=== PATIENT | male | born 1955 | race African-American/Black ===

== ENCOUNTER 2017-08-02 09:15 | Emergency (ER) | payer MEDICARE, MEDICAID ==
--- NOTE | 2017-08-02 09:42 | ER Document Report ---
ED Medical Screen (RME) - General Chief Complaint: Dizziness Stated Complaint: DIZZINESS Time Seen by Provider: 08/02/17 09:36 Notes: 61-year-old male patient complains of onset of Saturday 3 days ago, of dizziness and dyspnea on exertion. Reports she was picking at things in her grandmother' s yard. He states now he cannot walk to the bathroom without having to sit down and rest due to shortness of breath. The dizziness is not provoked by head motion standing up or looking about quickly. He denies ever having this before, however he has been here with similar complaints twice in 1 week almost 3 years ago. I have greeted and performed a rapid initial assessment of this patient. A comprehensive ED assessment and evaluation of the patient, analysis of test results and completion of the medical decision making process will be conducted by additional ED providers. TRAVEL OUTSIDE OF THE [place] IN LAST 30 DAYS: No - Related Data Allergies/Adverse Reactions: No Known Allergies Allergy (Verified 08/02/17 09:18) Past Medical History - Social History Chew tobacco use (# tins/day): No Frequency of alcohol use: None Drug Abuse: None - Past Medical History Cardiac Medical History: Reports: Hx Hypercholesterolemia Denies: Hx Atrial Fibrillation, Hx Congestive Heart Failure, Hx Coronary Artery Disease, Hx Heart Attack, Hx Hypertension, Hx Heart Murmur Pulmonary Medical History: Reports: Hx Pneumonia - "walking pneumonia" 15 years ago Denies: Hx Asthma, Hx Bronchitis, Hx COPD, Hx Respiratory Failure, Hx Sleep Apnea, Hx Tuberculosis Neurological Medical History: Denies: Hx Cerebrovascular Accident, Hx Seizures Renal/ Medical History: Denies: Hx End Stage Renal Disease, Hx Kidney Stones, Hx Peritoneal Dialysis GI Medical History: Denies: Hx Gastroesophageal Reflux Disease, Hx Hiatal Hernia , Hx Ulcer Musculoskeltal Medical History: Denies Hx Arthritis Psychiatric Medical History: Denies: Hx Bipolar Disorder, Hx Depression, Hx Schizophrenia Traumatic Medical History: Reports: Hx Fractures - Left middle finger,Right foot Surgical Hx: Negative Past Surgical History: Denies: Hx Open Heart Surgery - Immunizations Hx Diphtheria, Pertussis, Tetanus Vaccination: Yes Physical Exam - Vital signs Vitals: Temp Pulse Resp BP Pulse Ox 98.0 F 80 18 126/81 H 99 08/02/17 09:16 08/02/17 09:16 08/02/17 09:16 08/02/17 09:16 08/02/17 09:16 Course - Vital Signs Vital signs: Temp Pulse Resp BP Pulse Ox 98.0 F 80 18 126/81 H 99 08/02/17 09:16 08/02/17 09:16 08/02/17 09:16 08/02/17 09:16 08/02/17 09:16
--- NOTE | 2017-08-02 10:14 | ER Document Report ---
ED General - General Chief Complaint: Dizziness Stated Complaint: DIZZINESS Time Seen by Provider: 08/02/17 09:36 Mode of Arrival: Ambulatory Information source: Patient Notes: 61-year-old male who is on atorvastatin resents with complaints of body aches cramping and feeling lightheaded and dizzy with dark urine of the few day duration. Patient notes he was working outside, felt cramping of all his muscles, then felt short of breath, had to go inside. [facility] , felt cramping in the legs then went inside TRAVEL OUTSIDE OF THE [place] IN LAST 30 DAYS: No - HPI Onset: Last week Onset/Duration: Intermittent Quality of pain: Cramping Severity: Mild Pain Level: 1 Associated symptoms: Body/muscle aches, Weakness Exacerbated by: Other - working outdoors Relieved by: Denies Similar symptoms previously: Yes - 3 yrs ago Recently seen / treated by doctor: Yes - seen by dr mata for yearly - Related Data Allergies/Adverse Reactions: No Known Allergies Allergy (Verified 08/02/17 09:18) Past Medical History - Social History Smoking Status: Never Smoker Cigarette use (# per day): No Chew tobacco use (# tins/day): No Smoking Education Provided: No Frequency of alcohol use: None Drug Abuse: None Family History: Reviewed & Not Pertinent - Past Medical History Cardiac Medical History: Reports: Hx Hypercholesterolemia Denies: Hx Atrial Fibrillation, Hx Congestive Heart Failure, Hx Coronary Artery Disease, Hx Heart Attack, Hx Hypertension, Hx Heart Murmur Pulmonary Medical History: Reports: Hx Pneumonia - "walking pneumonia" 15 years ago Denies: Hx Asthma, Hx Bronchitis, Hx COPD, Hx Respiratory Failure, Hx Sleep Apnea, Hx Tuberculosis Neurological Medical History: Denies: Hx Cerebrovascular Accident, Hx Seizures Renal/ Medical History: Denies: Hx End Stage Renal Disease, Hx Kidney Stones, Hx Peritoneal Dialysis GI Medical History: Denies: Hx Gastroesophageal Reflux Disease, Hx Hiatal Hernia , Hx Ulcer Musculoskeltal Medical History: Denies Hx Arthritis Psychiatric Medical History: Denies: Hx Bipolar Disorder, Hx Depression, Hx Schizophrenia Traumatic Medical History: Reports: Hx Fractures - Left middle finger,Right foot Surgical Hx: Negative Past Surgical History: Denies: Hx Open Heart Surgery - Immunizations Hx Diphtheria, Pertussis, Tetanus Vaccination: Yes Review of Systems - Review of Systems Notes: REVIEW OF SYSTEMS: CONSTITUTIONAL : Denies fever, chills, or sweats. Denies recent illness. EENT: Denies eye, ear, throat, or mouth pain or symptoms. Denies nasal or sinus congestion or discharge. Denies throat, tongue, or mouth swelling or difficulty swallowing. CARDIOVASCULAR: Denies chest pain. Denies palpitations or racing or irregular heart beat. Denies ankle edema. RESPIRATORY: Denies cough, cold, or chest congestion. Denies shortness of breath, difficulty breathing, or wheezing. GASTROINTESTINAL: Denies abdominal pain or distention. Denies nausea, vomiting , or diarrhea. Denies blood in vomitus, stools, or per rectum. Denies black, tarry stools. Denies constipation. GENITOURINARY: Denies difficulty urinating, painful urination, burning, frequency, blood in urine, or discharge. MUSCULOSKELETAL: Admits cramping of muscles SKIN: Denies rash, lesions or sores. HEMATOLOGIC : Denies easy bruising or bleeding. LYMPHATIC: Denies swollen, enlarged glands. NEUROLOGICAL: Admits to dizziness PSYCHIATRIC: Denies anxiety or stress. Denies depression, suicidal ideation, or homicidal ideation. ALL OTHER SYSTEMS REVIEWED AND NEGATIVE. Dictation was performed using [employer] voice recognition software PHYSICAL EXAMINATION: GENERAL: Well-appearing, well-nourished and in no acute distress. HEAD: Atraumatic, normocephalic. EYES: Pupils equal round and reactive to light, extraocular movements intact, sclera anicteric, conjunctiva are normal. ENT: Nares patent, oropharynx clear without exudates. Moist mucous membranes. NECK: Normal range of motion, supple without lymphadenopathy LUNGS: Breath sounds clear to auscultation bilaterally and equal. No wheezes rales or rhonchi. HEART: Regular rate and rhythm without murmurs ABDOMEN: Soft, nontender, nondistended abdomen. No guarding, no rebound. No masses appreciated. Musculoskeletal: Normal range of motion, no pitting or edema. No cyanosis. NEUROLOGICAL: Cranial nerves grossly intact. Normal speech, normal gait. Normal sensory, motor exams PSYCH: Normal mood, normal affect. SKIN: Warm, Dry, normal turgor, no rashes or lesions noted. Physical Exam - Vital signs Vitals: Temp Pulse Resp BP Pulse Ox 98.0 F 80 18 126/81 H 99 08/02/17 09:16 08/02/17 09:16 08/02/17 09:16 08/02/17 09:16 08/02/17 09:16 Course - Re-evaluation Re-evalutation: 08/02/17 10:17 Patient's presentation is consistent with myalgias secondary to from statin use and exertion outdoor. Patient will be worked up for rhabdo 08/02/17 11:44 mild rhabdo and mild renal insufficiency noted. iv fluids ordered 08/02/17 11:52 After performing a Medical Screening Examination, I estimate there is LOW risk for RUPTURED ESOPHAGUS, PNEUMOTHORAX, PULMONARY EMBOLISM, ACUTE CORONARY SYNDROME, OR THORACIC AORTIC DISSECTION, thus I consider the discharge disposition reasonable. I have reevaluated this patient multiple times and no significant life threatening changes are noted. The patient and I have discussed the diagnosis and risks, and we agree with discharging home with close follow-up. We also discussed returning to the Emergency Department immediately if new or worsening symptoms occur. We have discussed the symptoms which are most concerning (e.g., bloody sputum, worsening pain or shortness of breath) that necessitate immediate return. - Vital Signs Vital signs: Temp Pulse Resp BP Pulse Ox 98.0 F 80 18 126/81 H 99 08/02/17 09:16 08/02/17 09:16 08/02/17 09:16 08/02/17 09:16 08/02/17 09:16 - Laboratory Result Diagrams: 08/02/17 09:54 08/02/17 09:54 Laboratory results interpreted by me: 08/02/17 08/02/17 08/02/17 09:54 09:54 09:54 RBC 6.14 H MCV 70 L MCH 23.2 L RDW 16.1 H Monocytes % 16.8 H Potassium 5.2 H BUN 51 H Creatinine 1.55 H Est GFR ( Amer) 55 L Est GFR (Non-Af Amer) 46 L Glucose 119 H Calcium 10.3 H Direct Bilirubin 0.5 H Creatine Kinase 990 H Total Protein 9.1 H Albumin 5.4 H Urine Blood SMALL H - Diagnostic Test Radiology reviewed: Image reviewed, Reports reviewed Discharge - Discharge Clinical Impression: Dehydration, Acute renal insufficiency, Myalgia Condition: Stable Disposition: HOME, SELF-CARE Additional Instructions: Please contact your pcp regarding your use of Statin Please hydrate more Return immediately if there are any other concerns Referrals: ROLF MATA, DO [Primary Care Provider] - Follow up tomorrow
[2017-08-02 10:37] LABS: ABSOLUTE BASOPHILS # (AUTO) 0.1 10^3/uL (0.0-0.2); ABSOLUTE EOSINOPHILS # (AUTO) 0.1 10^3/uL (0.0-0.6); ABSOLUTE LYMPHOCYTES (AUTO) 1.6 10^3/uL (0.5-4.7); ABSOLUTE NEUT (AUTO) 3.2 10^3/uL (1.7-8.2); BASOPHILS % (AUTO) 0.9 % (0-2); EOSINOPHILS % (AUTO) 1.1 % (0-6); HEMOGLOBIN 14.2 g/dL (13.5-17.0); HGB HCT DIFFERENCE -0.4; MEAN CORPUSCULAR HEMOGLOBIN 23.2 pg (27.0-33.4); MEAN CORPUSCULAR HGB CONC 33.1 g/dL (32.0-36.0); MEAN CORPUSCULAR VOLUME 70 fl (80-97); MONOCYTES % (AUTO) 16.8 % (3-13); RED BLOOD COUNT 6.14 10^6/uL (4.35-5.55); RED CELL DISTRIBUTION WIDTH 16.1 % (11.5-14.0); SEGMENTED NEUTROPHILS % (AUTO) 54.2 % (42-78); WHITE BLOOD COUNT 5.9 10^3/uL (4.0-10.5)
--- NOTE | 2017-08-02 10:41 | RADIOLOGY REPORT (SQ) ---
EXAM DESCRIPTION: CHEST PA/LAT COMPLETED DATE/TIME: 08/02/2017 10:26 am REASON FOR STUDY: [facility] COMPARISON: Two-view chest 04/24/2012 EXAM PARAMETERS: NUMBER OF VIEWS: two views TECHNIQUE: Digital Frontal and Lateral radiographic views of the chest acquired. RADIATION DOSE: NA LIMITATIONS: none FINDINGS: LUNGS AND PLEURA: No opacities, masses or pneumothorax. No pleural effusion. MEDIASTINUM AND HILAR STRUCTURES: No masses or contour abnormalities. HEART AND VASCULAR STRUCTURES: Heart normal size. No evidence for failure. BONES: No acute findings. HARDWARE: None in the chest. OTHER: No other significant finding. IMPRESSION: NO SIGNIFICANT RADIOGRAPHIC FINDING IN THE CHEST. TECHNICAL DOCUMENTATION: JOB ID: [id number] [employer]- All Rights Reserved
[2017-08-02 10:43] LABS: APPEARANCE,URINE SLIGHTLY-CLOUDY; BILIRUBIN,URINE NEGATIVE (NEGATIVE); GLUCOSE, URINE NEGATIVE (NEGATIVE); KETONES,URINE NEGATIVE (NEGATIVE); LEUKOCYTE ESTERASE,URINE NEGATIVE (NEGATIVE); NITRITE,URINE NEGATIVE (NEGATIVE); PROTEIN,URINE NEGATIVE (NEGATIVE); URINE SPECIFIC GRAVITY 1.021; UROBILINOGEN,URINE NEGATIVE mg/dL (<2.0)
[2017-08-02 10:57] LABS: ALANINE AMINOTRANSFERASE 28 U/L (21-72); ALBUMIN 5.4 g/dL (3.5-5.0); ALKALINE PHOSPHATASE 72 U/L (38-126); ANION GAP 18 (5-19); ASPARTATE AMINO TRANSFERASE 37 U/L (17-59); BILIRUBIN,DIRECT 0.5 mg/dL (0.0-0.4); BILIRUBIN,TOTAL 0.9 mg/dL (0.2-1.3); BLOOD UREA NITROGEN 51 mg/dL (7-20); CALCIUM 10.3 mg/dL (8.4-10.2); CARBON DIOXIDE 22 mmol/L (22-30); CHLORIDE 100 mmol/L (98-107); CREATINE KINASE 990 U/L (55-170); CREATININE RESULT 1.55 mg/dL (0.52-1.25); GLUCOSE 119 mg/dL (75-110); POTASSIUM 5.2 mmol/L (3.6-5.0); SODIUM 140.1 mmol/L (137-145); TOTAL PROTEIN 9.1 g/dL (6.3-8.2)
[2017-08-02 11:09] LABS: CREATINE KINASE MB 4.19 ng/mL (<4.55)
[2017-08-02 11:10] LABS: TROPONIN I < 0.012 ng/mL
[2017-08-02] MEDS ORDERED: NORMAL SALINE 1000 ML 1,000 ML IV ONE (11:12)
[2017-08-02 13:18] VITALS: BP 120/80
--- NOTE | 2017-08-02 19:31 | EKG REPORT ---
SEVERITY:- ABNORMAL ECG - SINUS RHYTHM LAD, CONSIDER LEFT ANTERIOR FASCICULAR BLOCK : Confirmed by: Ben aLla MD 02-Aug-2017 19:30:14
== END 2017-08-02 13:18 | disposition home or self-care (01) ==
LOC: ER 09:15
DX: E86.0 Dehydration (principal); N28.9 Disorder of kidney and ureter, unspecified; M79.1 Myalgia; R42 Dizziness and giddiness
CPT/HCPCS: 93005; 99284; 96360; 36415; 82553; 82550; 85025; 80053; 81001; 84484; 83880; 71020; 93010; J7030